=== PATIENT | female | born 1985 | race Caucasian/White ===

== ENCOUNTER 2018-06-16 23:36 | Inpatient (IN) | END 2018-06-19 18:00 | disposition home or self-care (01) | DRG 57 ==

== ENCOUNTER → 2018-11-17 | Outpatient (CLI) | payer OTHER ==
[~2018-11-17] MED LIST: METH-493 PO; PROP10TA6 PO
== END | disposition home or self-care (01) ==
LOC: NUC 13:24
PROVIDERS: ATTEND Internal Medicine
DX: E04.1 Nontoxic single thyroid nodule (principal)
CPT/HCPCS: 79005; A9517